=== PATIENT | female | born 2005 | race Caucasian/White ===

== ENCOUNTER 2023-02-26 14:11 | Emergency (ER) | payer BC, SELFPAY ==
--- NOTE | 2023-02-26 14:23 | ED.URI ---
HPI - URI/Sore Throat General Chief Complaint: Upper Respiratory Infection Stated Complaint: headache,cough,dry throat,runny nose,ears prob Time Seen by Provider: 02/26/23 14:35 Source: patient Mode of arrival: ambulatory Limitations: no limitations History of Present Illness HPI Narrative: Pily is a 17-year-old female patient presenting to the clinic today with complaints of headache, cough, scratchy throat, runny nose, and ear discomfort times 3 days. She denies any known fever or chills. MD elicited complaint: sore throat and nasal congestion Related Data Home Medications Medication Instructions Recorded Confirmed No Home Medications 02/26/23 02/26/23 Allergies Allergy/AdvReac Type Severity Reaction Status Date / Time No Known Allergies Allergy Verified 02/26/23 14:28 Review of Systems Review of Systems: Pertinent positives per HPI. Patient denies any fever, chills, rash, headache, visual changes, dizziness, shortness of breath, chest pain, palpitations, nausea, vomiting, diarrhea, constipation, abdominal pain, or any urinary issues. PMFSH Comments At the time of my signature, I reviewed and agree with the nursing past medical, surgical, social, and family history. There is no relevant family history pertinent to the patient complaint. Exam Narrative: General: Well-developed, well nourished, in no apparent distress Head: Normocephalic, atraumatic Eyes: Pupils equally round and reactive to light bilaterally, EOM intact, sclera and conjunctive clear, no discharge, lids normal Ears: TMs intact and clear, ear canals clear, no drainage, grossly hearing normal. Nose: Nares patent, clear nasal discharge, no inflammation, no sinus tenderness. Mouth: Oral pharynx without lesions or masses, good dentition, MMM. Neck: Supple, trachea midline, no enlargement of anterior or posterior cervical nodes, no thyroid masses or goiter palpable. Cardio: Regular rate and rhythm, s1 and s2 normal, no murmur appreciated. Resp: Clear to auscultation bilaterally, no rhonchi, rales, wheezing or rubs Course Course Emergency Course: Portions of this record may have been created with voice recognition software. Level of Care: Express Care Visit Vital Signs Vital signs: Vital signs reviewed MDM - URI/Sore Throat MDM Narrative Medical decision making narrative: At the time of visit patient is resting comfortably on the exam table. Patient appears to be nontoxic. COVID, and influenza testing was negative. I suspect patient has URI/viral syndrome. Supportive measures were discussed with the patient and they voiced understanding discharge instructions and agrees to treatment plan. Return precautions reviewed Differential Diagnosis Differential diagnosis: Likely upper respiratory infection, otitis media, sinusitis, viral infection, bronchitis, influenza, pharyngitis and other (COVID) Discharge Plan Discharge Clinical Impression: Upper respiratory infection, Viral infection Patient Disposition: Home, Self-Care Condition: Stable Instructions: Antibiotic Form, Upper Respiratory Infection (ED), Viral Syndrome (ED) Additional Instructions: COVID and influenza testing was negative Increase fluids and stay well hydrated Tylenol/motrin for pain/fever Flonase and OTC antihistamines as directed Vicks vapor rub to open sinuses Sinus rinses for congestion Cepacol spray, cough drops, throat lozenges, warm tea with honey/lemon, gargle salt water to soothe throat BRAT diet for diarrhea Clear liquids x 24 hours then advance as tolerated for nausea/vomiting Go to the ED if you develop a worsening in your condition- high fever not controlled by Tylenol or Motrin, dehydration, weakness, lethargy, shortness of breath, or chest pain. Follow up with your PCP in 3-5 days if symptoms persist. Prescriptions: No Action No Home Medications Follow-up/Referrals: PHYSICIAN,[facility] [Primary Care
[2023-02-26 14:33] VITALS: BP 117/84; PULSE 88; RESP 16; TEMP 36.6; O2SAT 100
== END 2023-02-26 15:00 | disposition home or self-care (01) ==
PROVIDERS: Emergency Provider Nurse Practitioner Family
DX: J06.9 Acute upper respiratory infection, unspecified (principal); B34.9 Viral infection, unspecified; Z20.822 Contact with and (suspected) exposure to COVID-19
CPT/HCPCS: 87426; 87804; 99213; C9803; G0463

== ENCOUNTER 2023-03-08 15:11 | Emergency (ER) | payer BC, SELFPAY ==
[2023-03-08 15:20] VITALS: BP 108/75; PULSE 68; RESP 16; TEMP 36.8; O2SAT 97
--- NOTE | 2023-03-08 15:34 | ED.EAR ---
HPI - Ear Problem General Chief complaint: Ear Stated complaint: Ear pain;Head/Eye pain Time Seen by Provider: 03/08/23 15:42 Source: patient and RN notes reviewed Mode of arrival: ambulatory Limitations: no limitations History of Present Illness HPI Narrative: 17 year old female presents with concern for 10+ day history of sinus congestion, drainage. Reports over the last several days she has began having right ear pain, sinus pain, facial pain. She reports trying Tylenol and ibuprofen without relief. She denies fever MD Complaint: ear pain Related Data Allergies Allergy/AdvReac Type Severity Reaction Status Date / Time No Known Allergies Allergy Verified 03/08/23 15:24 Review of Systems Review of Systems: CONSTITUTIONAL: Denies malaise, chills, sweats, or fever. EYES: Denies visual changes, redness, or discharge. ENT: Reports rhinorrhea, congestion, right-sided sinus pain, right ear pain CARDIOVASCULAR: Denies chest pain, palpitations, or edema. RESPIRATORY: Denies cough. Denies dyspnea. GASTROINTESTINAL: Denies abdominal pain, nausea, vomiting, diarrhea SKIN: Denies rash or itching. MUSCULOSKELETAL: Denies myalgia. NEUROLOGIC: Denies headache. All systems reviewed & are unremarkable except as noted in HPI and below PMFSH Comments At time of signature, agree with nursing past medical, surgical, social and family history. There is no relevant family history pertinent to the presenting complaint Exam Narrative: GENERAL: Well-appearing, well-nourished, and in no acute distress. HEAD: Normocephalic EYES: PERRLA, conjunctivae clear ENT: Nares clear, turbinates edematous, sinus tenderness. Mucous membranes moist. TM pearly stewart with dull light reflex bilaterally; no tragal tenderness. Oropharynx not erythematous without lesions. Tonsils not enlarged and without exudate, no drooling, no hoarseness, no trismus, uvula midline. NECK: Supple. No lymphadenopathy CHEST: Clear to auscultation, breath sounds equal. No wheezing, rhonchi, rales, or stridor. No respiratory distress, speaks in full sentences. HEART: Regular rate and rhythm. No murmur heard. SKIN: Warm, dry, no rash. NEURO: Alert and oriented x3. PSYCH: Normal mood and affect Course Course Emergency Course: Patient is aware of diagnosis, understands and agrees to treatment plan. Anticipatory guidance given. Patient agrees to follow-up as directed and is aware of reasons to seek care at the emergency department. Portions of this record may have been created with voice recognition software Level of Care: Express Care Visit Vital Signs Vital signs: Vital Signs Temperature 98.2 F 03/08/23 15:20 Pulse Rate 68 03/08/23 15:20 Respiratory Rate 16 03/08/23 15:20 Blood Pressure 108/75 03/08/23 15:20 Pulse Oximetry 97 03/08/23 15:20 Temperature 98.2 F 03/08/23 15:20 Pulse Rate 68 03/08/23 15:20 Respiratory Rate 16 03/08/23 15:20 Blood Pressure 108/75 03/08/23 15:20 Pulse Oximetry 97 03/08/23 15:20 Reviewed. Medical Decision Making MDM Narrative Medical decision making narrative: Differential diagnosis considered: Trejo virus, strep pharyngitis, allergic rhinitis, upper respiratory tract infection, sinusitis, rhinosinusitis, nasopharyngitis. viral pharyngitis, otitis media, otitis externa, otitis effusion, cerumen impaction, foreign body. Exam findings show no acute concerns or changes; patient is non-toxic appearing and is in no distress. Patient is appropriate for outpatient treatment and follow-up. Vital Signs Vital Signs: Vital Signs Temperature 98.2 F 03/08/23 15:20 Pulse Rate 68 03/08/23 15:20 Respiratory Rate 16 03/08/23 15:20 Blood Pressure 108/75 03/08/23 15:20 Pulse Oximetry 97 03/08/23 15:20 Temperature 98.2 F 03/08/23 15:20 Pulse Rate 68 03/08/23 15:20 Respiratory Rate 16 03/08/23 15:20 Blood Pressure 108/75 03/08/23 15:20 Pulse Oximetry 97 03/08/23 15:20
== END 2023-03-08 15:45 | disposition home or self-care (01) ==
PROVIDERS: Emergency Provider Nurse Practitioner
DX: J32.9 Chronic sinusitis, unspecified (principal)
CPT/HCPCS: 99213; G0463

== ENCOUNTER 2024-01-29 12:49 | Emergency (ER) | payer SELFPAY ==
[2024-01-29 12:51] VITALS: BP 117/71; PULSE 64; RESP 16; TEMP 36.6; O2SAT 100
[2024-01-29 14:03] LABS: BEDSIDEPREGUCG Negative (Negative)
[2024-01-29 14:10] LABS: Add Urine Microscopic? NO; Appearance Urine Clear (Clear); Bilirubin Urine Negative (Negative); Blood Urine Negative (Negative); Color Urine Yellow (Yellow); Glucose Urine UA Negative (Negative); Ketones Urine Negative (Negative); Leukocyte Esterase Ur Negative LEU/UL (Negative); Nitrate Urine Negative (Negative); Protein Urine Negative (Negative); Specific Grav Ur 1.011 (1.001-1.035); Urobilinogen Urine 0.2 mg/dL (<2.0)
[2024-01-29 15:22] LABS: Trichomonas Vag PCR NOT DETECTED (NOT DETECTE)
[2024-01-29 15:46] LABS: Chlamydia trachomatis NOT DETECTED (NOT DETECTE); Neisseria gonorrhoeae PCR NOT DETECTED (NOT DETECTE)
[2024-01-29 15:50] VITALS: BP 126/70; PULSE 92; RESP 19; O2SAT 99
--- NOTE | 2024-01-29 16:31 | ED.GENADULT ---
HPI - General Adult General Chief complaint: Urogenital-Female Stated complaint: urogential Time Seen by Provider: 01/29/24 14:39 History of Present Illness HPI narrative: This is a 18-year-old female presenting ED with chief complaint of pelvic discharge. Patient was exposed to STDs and treated about 3 weeks ago. Since then she has been having intermittent pelvic pain that she describes as burning. She has also had a pinkish discharge. Last menstrual period was 2 weeks ago. No other complaints. Related Data Allergies Allergy/AdvReac Type Severity Reaction Status Date / Time No Known Allergies Allergy Verified 01/29/24 14:38 Exam Narrative: APPEARANCE: No apparent distress. Head: atraumatic. EYES: EOMI, NOSE: Atraumatic NECK: Trachea midline RESPIRATORY: No increased rate of breathing CARDIOVASCULAR: RRR, ABDOMINAL: Non-distended, soft nontender no guarding rebound MUSCULOSKELETAl: No obvious deformities NEURO: Alert. Moving 4/4 extremities SKIN:: Warm, dry. Normal color PSYCHIATRIC: Normal affect PELVIC EXAM: No lesions. Significant white discharge in the vaginal vault, no mucus from the cervical os no cervical motion tenderness Course Vital Signs Vital signs: Vital Signs Temperature 97.9 F 01/29/24 12:51 Pulse Rate 64 01/29/24 12:51 Respiratory Rate 16 01/29/24 12:51 Blood Pressure 117/71 01/29/24 12:51 Pulse Oximetry 100 01/29/24 12:51 Oxygen Delivery Room Air 01/29/24 12:51 Temperature 97.9 F 01/29/24 12:51 Pulse Rate 92 01/29/24 15:50 Respiratory Rate 19 01/29/24 15:50 Blood Pressure 126/70 01/29/24 15:50 Pulse Oximetry 99 01/29/24 15:50 Oxygen Delivery Room Air 01/29/24 12:51 Medical Decision Making [facility] Narrative Medical decision making narrative: -Course: 18-year-old female presenting pelvic pain and pinkish discharge. Patient is not currently having pelvic pain. Her abdominal exam is benign. She is well appearing fevers in stable vital signs. Urine was not indicative infection. Pelvic exam showed some white cheesy discharge in the vaginal vault but no other significant findings. STD testing was negative. Patient will be treated for a yeast infection although I am not sure if that is the true cause of her symptoms. Patient has been encouraged follow-up with her OBGYN for further management -DDX includes but is not limited to: STD, BV, UTI -Co-morbidities complicating care: STD exposure -Independent interpretation of studies: UA and STDs negative for infection -Interventions: Fluconazole -Shared decision making / Disposition:d/c -RX fluconazole Vital Signs Vital Signs: Vital Signs Temperature 97.9 F 01/29/24 12:51 Pulse Rate 64 01/29/24 12:51 Respiratory Rate 16 01/29/24 12:51 Blood Pressure 117/71 01/29/24 12:51 Pulse Oximetry 100 01/29/24 12:51 Oxygen Delivery Room Air 01/29/24 12:51 Temperature 97.9 F 01/29/24 12:51 Pulse Rate 92 01/29/24 15:50 Respiratory Rate 19 01/29/24 15:50 Blood Pressure 126/70 01/29/24 15:50 Pulse Oximetry 99 01/29/24 15:50 Oxygen Delivery Room Air 01/29/24 12:51 Lab Data Labs: Lab Results 01/29/24 01/29/24 Range/Units 14:01 14:02 Urine Color Yellow (Yellow) Urine Appearance Clear (Clear) Urine pH 7.0 (5.0-9.0) Ur Specific [place] 1.011 (1.001-1.035) Urine Protein Negative (Negative) mg/dL Urine Glucose (UA) Negative (Negative) mg/dL Urine Ketones Negative (Negative) mg/dL Ur Blood (Man) Negative (Negative) Urine Nitrate Negative (Negative) Urine Bilirubin Negative (Negative) Urine Urobilinogen 0.2 (<2.0) mg/dL Leukocyte Esterase Rfl Negative (Negative) ALFRED/UL POC Urine HCG, Qual Negative (Negative) C. trachomatis (PCR) Not detected (NOT DETECTE) N. gonorrhoeae (PCR) Not detected (NOT DETECTE) T. vaginalis (PCR) Not detected (NOT DETECTE) Discharge Plan Discharge Clinical Impression: Pelvic pain Patient Disposition: Home, Self-Care Condition: Stable Instructions: Antibiotic Form, Yeast Infection (ED), Pelvic Pain (ED) Additional Instructions: You were seen in the emergency department for pelvic pain and vaginal discharge. We are treating you for a yeast infection to see if that improves her symptoms. Please follow-up with OBGYN for further management. Return any time if you develop fevers, abdominal pain or vaginal discharge Prescriptions: New fluconazole 150 mg tablet 150 mg PO DAILY Qty: 1 0RF Rx Instructions: Take 1 tablet in 48 hours No Action pseudoephedrine HCl [12 Hour Decongestant] 120 mg tablet extended release 120 mg PO Q12H PRN (Reason: nasal congestion) Qty: 20 0RF amoxicillin-pot clavulanate 875-125 mg tablet 1 tablet PO Q12H 10 Days Qty: 20 0RF Follow-up/Referrals: PHYSICIAN,[employer] [Primary Care Provider] - Janes Zavala MD [Physician] - 1 Week
[2024-01-29] MEDS: FLUCONAZOLE 150 MG TABLET PO (16:40)
== END 2024-01-29 16:50 | disposition home or self-care (01) ==
PROVIDERS: Student in an Organized Health Care Education/Training Program; Emergency Provider Emergency Medicine
DX: R10.2 Pelvic and perineal pain (principal)
CPT/HCPCS: 81003; 81025; 87491; 87591; 87661; 99284; A9270